=== PATIENT | female | born 1980 | race Caucasian/White ===

== ENCOUNTER 2020-12-28 02:19 | Emergency (ER) | payer SELFPAY ==
[~2020-12-28] VITALS: Ht 157.5 cm; Wt 64.9 kg
[2020-12-28 05:54] LABS: Basophils # (auto) 0 10 ^3/uL (0-0.2); Basophils % (auto) 0.6 % (0.0-2.0); Eosinophils # (auto) 0.1 10 ^3/uL (0-0.8); Eosinophils % (auto) 0.7 % (0.0-7.0); Hematocrit 44.7 % (36.0-46.0); Hemoglobin 15.1 g/dL (12.2-16.2); Lymphocytes # (auto) 1.4 10 ^3/uL (0.4-5.4); Lymphocytes % (auto) 17.5 % (10.0-50.0); Mean Corpuscular Hemoglobin 31.9 pg (28.0-32.0); Mean Corpuscular Hgb Conc. 33.8 g/dL (32.0-36.0); Mean Corpuscular Volume 94.6 fL (80.0-100.0); Monocytes # (auto) 0.4 10 ^3/uL (0-1.3); Monocytes % (auto) 5.2 % (0.0-12.0); Neutrophils # (auto) 6.1 10 ^3/uL (1.6-8.6); Nucleated Red Blood Cells % 0.1 %; Red Blood Cells 4.73 10^6/uL (4.0-5.20); Red Cell Distribution Width 12.7 % (11.8-14.3)
[2020-12-28 06:13] VITALS: BP 105/54
[2020-12-28 06:19] LABS: Potassium 3.9 mmol/L (3.5-5.1)
[2020-12-28 06:32] LABS: Albumin 4.2 g/dL (3.4-5.0); BUN/Creatinine Ratio 13.4; Bilirubin, Total 0.4 mg/dL (0.2-1.0); Calcium 8.7 mg/dL (8.5-10.1); Total Protein 8.3 g/dL (6.4-8.2)
[2020-12-28] MEDS ORDERED: ASPirin 81 mg TAB PO ONE (07:45)
== END 2020-12-28 08:32 | disposition left against medical advice (07) ==
LOC: ER 02:19
DX: J32.9 Chronic sinusitis, unspecified (principal); R07.89 Other chest pain; R11.2 Nausea with vomiting, unspecified; Z88.6 Allergy status to analgesic agent
CPT/HCPCS: 36415; 80053; 84484; 85025; 93005